=== PATIENT | female | born 2000 | race Caucasian/White ===

== ENCOUNTER 2022-03-25 20:22 | Emergency (ER) | payer BC, OTHER ==
[~2022-03-25] VITALS: Ht 167.6 cm; Wt 52.2 kg
[2022-03-25] MEDS ORDERED: ONDANSETRON HCL INJ 2MG/ML 2ML 2 MG/ML VIAL IV STA (22:02)
[2022-03-25] MEDS ORDERED: FENTANYL CITRATE/PF 100MCG/2 ML INJ IV ONE (22:15)
[2022-03-25] MEDS ORDERED: ETOMIDATE 2 MG/ML 10 ML INJ IV STA (22:28)
[2022-03-25] MEDS ORDERED: ETOMIDATE 40 MG/ 20ML VIAL IV ONE (22:58)
[2022-03-25] MEDS ORDERED: SODIUM CHLORIDE 0.9% 1000ML 1,000 ML ONE (22:58)
[2022-03-25] MEDS ORDERED: HYDROCODON-ACE1 EAC9 PO (23:34)
[2022-03-25 23:58] VITALS: BP 117/78
== END 2022-03-25 23:59 | disposition home or self-care (01) ==
LOC: ER 20:58
DX: S43.085A Other dislocation of left shoulder joint, initial encounter (principal); X50.1XXA Overexertion from prolonged static or awkward postures, initial encounter; Y92.89 Other specified places as the place of occurrence of the external cause
CPT/HCPCS: 23655; 36415; 73030; 84702; 99284; J3010; J7030

== ENCOUNTER 2022-04-26 17:10 | Emergency (ER) | payer BC ==
[~2022-04-26] VITALS: Ht 167.6 cm; Wt 52.2 kg
[~2022-04-26 17:10] MED LIST: HYDROCODON-ACE1 EAC9 PO
[2022-04-26] MEDS ORDERED: HYDROXYZINE HCL 25 MG TAB PO ONE (17:45)
[2022-04-26] MEDS ORDERED: HYDROXYZINE HCL 25 MG TAB PO SCH (17:45)
[2022-04-26] MEDS ORDERED: HYDROXYZINE HCL 25 MG TAB ONE (17:49)
== END 2022-04-26 18:24 | disposition home or self-care (01) ==
LOC: ER 17:47
DX: F41.9 Anxiety disorder, unspecified (principal); F43.9 Reaction to severe stress, unspecified
CPT/HCPCS: 99282; J3410